=== PATIENT | male | born 1940 | race Caucasian/White ===

== ENCOUNTER 2023-03-16 11:19 | Emergency (ER) | payer MEDICARE, SELFPAY ==
[2023-03-16] VITALS (28 sets, daily range): BP systolic 124–187; BP diastolic 80–150; PULSE 71–103; RESP 11–30; TEMP 36.8; O2SAT 85–100
--- NOTE | ~2023-03-16 | XR_ITS ---
EXAMINATION: XR chest 1V portable INDICATION: Midsternal chest pain and shortness of breath TECHNIQUE: Portable AP chest at 1235 hours COMPARISON: 02/04/2011; CT, 06/14/2009 FINDINGS: Calcified bilateral pleural plaques are noted which can be seen in the setting of prior asb estos exposure. The lungs are free of acute opacities. No pleural effusion or pneumothorax. The cardi omediastinal silhouette is normal. IMPRESSION: 1. No acute cardiopulmonary abnormality. 2. Calcified pleural plaques which can be seen in the setting of prior asbestos exposure. Reviewed, dictated and finalized at location L.
--- NOTE | 2023-03-16 11:25 | ECG_ITS ---
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
--- NOTE | 2023-03-16 11:47 | ED.SOB ---
HPI - SOB/Dyspnea General Chief Complaint: Shortness of Breath/Dyspnea Stated Complaint: Cardiac Time Seen by Provider: 03/16/23 11:44 Source: patient Mode of arrival: ambulatory Limitations: no limitations History of Present Illness HPI Narrative: 82-year-old male a history of remote smoking, recurrent falls,irregular heart, negative cardiac catheterization many years ago, hypertension, diabetes mellitus, dyslipidemia, glaucoma, status post neck surgery, bilateral rotator tendinitis status post injections, presented to his primary care physician for -- right-sided chest pain. he had 2 episodes of right-sided chest pain this morning which lasted a few seconds with spontaneous resolution. -- shortness of breath. No cough or sputum production. -- high blood pressure. the patient quit taking all his medicines 3 weeks ago. No fever or chills. No upper respiratory symptoms. MD elicited complaint: shortness of breath Pertinent past history: diabetes Onset (ago): hour(s) ( 6 hours ago) Timing: constant Exacerbating factors: nothing Relieving factors: nothing Associated symptoms: chest pain Treatment prior to arrival: none Related Data Home oxygen amount: none Home Medications Medication Instructions Recorded Confirmed acetaminophen 300 mg-codeine 30 mg 1 tablet PO QID PRN Pain (Scale 03/16/23 03/16/23 tablet Score 4-6) aspirin 81 mg tablet,delayed 81 mg PO DAILY 03/16/23 03/16/23 release (Adult Low Dose Aspirin) atenolol 50 mg tablet 50 mg PO DAILY 03/16/23 03/16/23 chlordiazepoxide 10 mg tablet 10 mg PO DAILY 03/16/23 03/16/23 glipizide 2.5 mg tablet, extended 2.5 mg PO DAILY 03/16/23 03/16/23 release 24 hr lisinopril 40 mg tablet 40 mg PO DAILY 03/16/23 03/16/23 simvastatin 20 mg tablet 20 mg PO DAILY 03/16/23 03/16/23 Allergies Allergy/AdvReac Type Severity Reaction Status Date / Time morphine Allergy Unknown Verified 03/16/23 11:33 Review of Systems Review of Systems: All systems reviewed & are unremarkable except as noted in HPI and below Constitutional: Constitutional: Reports as per HPI Eyes: Eyes: Reports as per HPI Comments: blurred vision. He was advised eyedrops for glaucoma but he quit taking it a while ago ENT: Reports system reviewed and no additional complaints, except as documented Cardiovascular: Cardiovascular: Reports as per HPI, Reports no additional cardiovascular complaints and Reports chest pain Respiratory: Respiratory: Reports as per HPI, Reports no additional respiratory complaints and Reports dyspnea Gastrointestinal: Gastrointestinal: Reports as per HPI and Reports no additional gastrointestinal complaints Genitourinary: Genitourinary: Reports no additional male genitourinary complaints and Reports as per HPI Musculoskeletal: Musculoskeletal: Reports no additional musculoskeletal complaints and Reports as per HPI Integumentary/Breasts: Skin/Breast: Reports system reviewed and no additional complaints, except as docu and Reports as per HPI Neurologic: Reports system reviewed and no additional complaints, except as documented and Reports as per HPI Psychiatric: Psychiatric: Reports no additional psychiatric complaints and Reports as per HPI Endocrine: Endocrine: Reports no additional endocrine complaints and Reports as per HPI Hematologic/Lymphatic: Hematologic/Lymphatic: Reports no additional hematologic/lymphatic complaints and Reports as per HPI Allergic/Immunologic: Allergic/Immunologic: Reports no additional allergic/immunologic complaints and Reports as per HPI [facility] Past Medical History Medical History (Updated 03/16/23 @ 13:34 by Nabeel Sullivan MD) Diabetes mellitus Dyslipidemia Glaucoma Hypertension Rotator cuff tendinitis Surgical History Surgical History (Updated 03/16/23 @ 12:11 by Nabeel Sullivan MD) H/O neck surgery Status post glaucoma surgery Family History Family History (Reviewed 03/16/23 @ 12:10 by Nabeel Aden
[2023-03-16 12:25] LABS: Basophils Absolute Auto 0.07 K/mm3 (0.00-0.10); Basophils Percent Auto 0.7 % (0.0-1.0); Eosinophils Absolute Auto 0.33 K/mm3 (0.02-0.50); Eosinophils Percent Auto 3.5 % (1.0-6.0); Hematocrit 44.6 % (37.0-46.0); Hemoglobin 14.7 g/dL (12.4-15.3); Immature Granulocyte Absolute 0.05 K/mm3 (0.00-0.00); Immature Granulocyte Percent A 0.5 % (0.0-0.0); Lymphocytes Absolute Auto 2.84 K/mm3 (1.10-4.50); Lymphocytes Percent Auto 30.3 % (18.0-42.0); Mean Corpuscular Hemoglobin 32.2 pg (27.0-31.0); Mean Corpuscular Volume 97.8 fL (78.0-102.0); Mean Platelet Volume 11.1 fl (8.7-11.0); Monocytes Absolute Auto 0.75 K/mm3 (0.10-0.90); Neutrophils Absolute Auto 5.3 K/mm3 (1.7-7.2); Platelet Count Result 170 K/mm3 (150-420); Red Blood Count 4.56 M/mm3 (4.70-6.10); Red Cell Distribution Width 12.7 % (11.6-14.4); White Blood Count 9.4 K/mm3 (4.8-10.8)
--- NOTE | 2023-03-16 12:25 | PC.NURSE ---
FAMILY HAVE ARRIVED. PT DENIES ANY COMPLAINTS. PT IS AWAITING RESULTS AT THIS TIME. WILL CONTINUE TO MONITOR.
[2023-03-16 12:34] LABS: Partial Thromboplastin Time 25.1 SEC (23.90-30.70); Prothrombin Time 10.9 Seconds (9.50-12.10)
[2023-03-16 12:46] LABS: Magnesium 1.7 mg/dL (1.8-2.4)
[2023-03-16 12:46] LABS: Alanine Aminotransferase 19 U/L (16-63); Albumin Level 3.8 g/dL (3.4-5.0); Alkaline Phosphatase 62 U/L (46-116); Anion Gap 12 mmol/L (8-16); Aspartate Amino Transferase 20 U/L (15-37); Bilirubin,Total 0.5 mg/dL (0.00-1.00); Blood Urea Nitrogen 26 mg/dL (7-18); Calcium 9.3 mg/dL (8.5-10.1); Carbon Dioxide 24 mmol/L (21-32); Chloride 106 mmol/L (98-108); Estimated CRCL calculation 45 ml/min; Estimated Glomerular Filt Rate > 60; Glucose 121 mg/dL (70-99); NT Pro B Type Natriuretic Pept 744 pg/mL (0-450); Osmolality Calculated 299 mOsm/kg (285-295); Potassium 4.6 mmol/L (3.5-5.1); Sodium 142 mmol/L (136-145); Total Protein 7.2 g/dL (6.4-8.2); Troponin I 14.4 ng/L (0.00-60.4)
[2023-03-16 12:46] LABS: Thyroid Stimulating Hormone 0.52 uIU/mL (0.36-3.74)
[2023-03-16] MEDS: MAGNESIUM SULF 2 GM/WATER 50ML 2 GM/50 ML BAG IVPB (13:15)
[2023-03-16] MEDS: METOPROLOL TARTRATE INJ 5 MG/5 ML VIAL 2.5 MG IV PUSH (13:22)
--- NOTE | 2023-03-16 13:28 | PC.NURSE ---
PT IS TALKING WITH FAMILY AT BEDSIDE. NAD NOTED. PT DENIES ANY COMPLAINTS. IV MEDICATION INFUSING ORDERED WITHOUT DIFFICULTY. NAD NOTED. WILL CONTINUE TO MONITOR.
== END 2023-03-16 14:00 | disposition home or self-care (01) ==
PROVIDERS: Emergency Provider Internal Medicine Critical Care Medicine; PCP Physician Assistant
DX: E78.5 Hyperlipidemia, unspecified (principal); R07.89 Other chest pain; I48.91 Unspecified atrial fibrillation; I10 Essential (primary) hypertension; E11.9 Type 2 diabetes mellitus without complications; Z79.82 Long term (current) use of aspirin
CPT/HCPCS: 36415; 71045; 80053; 83735; 83880; 84443; 84484; 85025; 85610; 85730; 93005; 96365; 96375; 99284; J3475